=== PATIENT | female | born 1965 | race African-American/Black ===

== ENCOUNTER 2021-05-25 12:14 | Emergency (ER) | payer SELFPAY ==
[~2021-05-25] VITALS: Ht 165.1 cm; Wt 88.9 kg
[2021-05-25 13:13] VITALS: BP 131/76
[2021-05-25] MEDS ORDERED: IBUPROFEN 800 MG TAB PO ONE (13:45)
[2021-05-25] MEDS ORDERED: IBUP800T27 PO (13:51)
== END 2021-05-25 14:11 | disposition home or self-care (01) ==
LOC: ER 12:18
DX: S70.11XA Contusion of right thigh, initial encounter (principal); F17.210 Nicotine dependence, cigarettes, uncomplicated; Z90.49 Acquired absence of other specified parts of digestive tract; Z90.89 Acquired absence of other organs; Z98.51 Tubal ligation status; Z88.1 Allergy status to other antibiotic agents; Z88.0 Allergy status to penicillin; W22.8XXA Striking against or struck by other objects, initial encounter; Y93.89 Activity, other specified; Y92.89 Other specified places as the place of occurrence of the external cause; Y99.8 Other external cause status

== ENCOUNTER 2021-06-08 13:52 | Emergency (ER) | payer OTHER ==
[~2021-06-08] VITALS: Ht 165.1 cm; Wt 87.5 kg
[~2021-06-08 13:52] MED LIST: IBUP800T27 PO
[2021-06-08 14:59] VITALS: BP 123/69
[2021-06-08] MEDS ORDERED: IBUP800T27 PO (16:11)
[2021-06-08] MEDS ORDERED: PRED20TA2 PO (16:11)
== END 2021-06-08 16:19 | disposition home or self-care (01) ==
LOC: ER 13:52
DX: S70.11XA Contusion of right thigh, initial encounter (principal); M54.31 Sciatica, right side; F17.210 Nicotine dependence, cigarettes, uncomplicated; Z88.1 Allergy status to other antibiotic agents; Z88.0 Allergy status to penicillin; W20.8XXA Other cause of strike by thrown, projected or falling object, initial encounter; Y93.89 Activity, other specified; Y92.89 Other specified places as the place of occurrence of the external cause; Y99.8 Other external cause status
CPT/HCPCS: 93971